=== PATIENT | female | born 1990 | race Caucasian/White ===

== ENCOUNTER → 2016-12-29 | Outpatient (CLI) | payer BC ==
[~2016-12-29] MED LIST: ACET50TA PO; IBUP-1114 PO; ORTHOTRI PO; PRENTAB9 PO; PRIL20CA9 PO; THERGRAN; [UNRECOGNIZED DRUG - REMARK]
[2016-12-29 18:17] LABS: BASO % 0.5 % (0.0-1.0); EOS # 0.1 K/mm3 (0.0-0.50); EOS % 1.3 % (0.0-3.0); LARGE UNSTAINED CELL # 0.1 K/mm3 (0.0-0.4); LARGE UNSTAINED CELL % 1.6 % (0.0-4.0); LYMPH # 2.7 K/mm3 (1.5-6.5); LYMPH % 30.5 % (24.0-44.0); MEAN CORPUSCULAR HEMOGLOBIN 29.7 pg (27.0-33.0); MEAN CORPUSCULAR HGB CONC 33.1 g/dl (32.0-36.5); MEAN CORPUSCULAR VOLUME 89.7 fl (80.0-96.0); MONO # 0.4 K/mm3 (0.0-0.8); NEUTROPHILS # 5.5 K/mm3 (1.8-7.7); PLATELET COUNT, AUTOMATED 265 k/mm3 (150-450); RED CELL DISTRIBUTION WIDTH 13.1 % (11.5-14.5); WHITE BLOOD COUNT 8.8 K/mm3 (4.0-10.0)
[2016-12-29 18:26] LABS: ALBUMIN/GLOBULIN RATIO 1.21 (1.00-1.93); ALKALINE PHOSPHATASE 89 U/L (45-117); ALT/SGPT 28 U/L (12-78); ANION GAP 10 MEQ/L (8-16); AST/SGOT 17 U/L (15-37); BILIRUBIN,TOTAL 0.2 MG/DL (0.2-1.0); BLOOD UREA NITROGEN 13 MG/DL (7-18); CALCIUM LEVEL 8.6 MG/DL (8.5-10.1); CARBON DIOXIDE LEVEL 26 MEQ/L (21-32); CHLORIDE LEVEL 107 MEQ/L (98-107); CREATININE FOR GFR 0.83 MG/DL (0.55-1.02); GLOMERULAR FILTRATION RATE > 60.0 (>60); GLUCOSE, FASTING 93 MG/DL (70-105); POTASSIUM SERUM 4.3 MEQ/L (3.5-5.1); SODIUM LEVEL 143 MEQ/L (136-145); TOTAL PROTEIN 7.3 GM/DL (6.4-8.2)
[2016-12-29 18:53] LABS: PROLACTIN 4.1 NG/ML
== END ==
LOC: M SMT 13:40
PROVIDERS: ATTEND Family Medicine
DX: L65.9 Nonscarring hair loss, unspecified (principal)

== ENCOUNTER → 2020-11-10 | Outpatient (REF) | payer BC ==
[~2020-11-10] MED LIST changes: -ACET50TA PO; +MAPA500T2 PO
== END ==
LOC: M SFHCWAGY 13:15
PROVIDERS: ATTEND Nurse Practitioner Family
DX: Z12.4 Encounter for screening for malignant neoplasm of cervix (principal)

== ENCOUNTER → 2021-09-02 | Outpatient (CLI) | payer BC ==
--- NOTE | 2021-09-02 11:04 | REP ---
INDICATION: PELVIC AND PERINEAL PAIN. COMPARISON: None. TECHNIQUE: Transvesical and transvaginal imaging FINDINGS: The uterus measures 8.6 x 4.6 x 4.3 cm. The parenchymal echo pattern is within normal limits. The endometrial echo complex measures 9 mm in thickness and is homogeneous. Incidental note is made of nabothian cyst. There is no free fluid in the cul-de-sac. The right ovary measures 4.2 x 2.9 x 3.5 cm and is within normal limits with an RI 0.58 A 2.3 cm sized anechoic structure is seen in the right ovary consistent with a dominant follicle. The left ovary measures 2.7 x 1.9 x 2.7 cm and is within normal limits with an RI 0.62. IMPRESSION: Within normal limits. <Electronically signed by John Ann > 09/02/21 1100
--- NOTE | 2021-09-02 13:51 | REP ---
INDICATION: PELVIC AND PERINEAL PAIN. COMPARISON: None. FINDINGS: See dictation under report of pelvic non OB ultrasound this date. IMPRESSION: See dictation under report of pelvic non OB ultrasound this date. <Electronically signed by Eugenio Mckay > 09/02/21 [id number]
== END ==
LOC: M WHC 08:46
PROVIDERS: ATTEND Specialist
DX: N83.02 Follicular cyst of left ovary (principal)

== ENCOUNTER → 2022-01-12 | Outpatient (REF) | payer OTHER | LOC: M PLALAB 09:24 | PROVIDERS: ATTEND Specialist | DX: Z12.4 Encounter for screening for malignant neoplasm of cervix (principal) | CPT/HCPCS: 87624; G0123 ==

== ENCOUNTER → 2023-06-19 | Outpatient (CLI) | payer BC | LOC: M CLY 11:04 | PROVIDERS: ATTEND Nurse Practitioner Family | DX: M79.671 Pain in right foot (principal); M79.672 Pain in left foot ==

== ENCOUNTER → 2023-06-19 | Outpatient (CLI) | payer BC | LOC: M CLY 10:55 | PROVIDERS: ATTEND Nurse Practitioner Family | DX: Z53.9 Procedure and treatment not carried out, unspecified reason (principal) ==

== ENCOUNTER → 2024-01-26 | Outpatient (REF) | payer OTHER ==
[2024-01-26 12:42] LABS: BASO # 0.1 10^3/uL (0.0-0.2); BASO % 0.7 % (0.0-1.0); EOS # 0.1 10^3/uL (0.0-0.5); EOS % 1.1 % (0.0-3.0); HEMATOCRIT 39.3 % (36.0-47.0); HEMOGLOBIN 12.8 g/dl (12.0-15.5); LYMPH # 2.8 10^3/uL (1.5-5.0); LYMPH % 34.2 % (24.0-44.0); MEAN CORPUSCULAR HEMOGLOBIN 29.6 pg (27.0-33.0); MEAN CORPUSCULAR HGB CONC 32.6 g/dl (32.0-36.5); MONO # 0.5 10^3/uL (0.0-0.8); MONO % 6.5 % (2.0-8.0); NEUTROPHILS # 4.6 10^3/uL (1.5-8.5); NEUTROPHILS % 57.3 % (36.0-66.0); PLATELET COUNT, AUTOMATED 289 10^3/uL (150-450); RED BLOOD COUNT 4.32 10^6/uL (4.00-5.40); WHITE BLOOD COUNT 8.1 10^3/uL (4.0-10.0)
[2024-01-26 13:09] LABS: C REACTIVE PROTEIN QUANTITATIV < 0.40 MG/DL (<1.0)
[2024-01-26 13:11] LABS: ALKALINE PHOSPHATASE 73 U/L (46-116); ALT/SGPT 20 U/L (7.0-40); AST/SGOT 11 U/L (<34); BILIRUBIN,DIRECT 0.2 MG/DL (<0.4); BILIRUBIN,TOTAL 0.7 MG/DL (0.3-1.2); BLOOD UREA NITROGEN 13 MG/DL (9-23); CALCIUM LEVEL 8.9 MG/DL (8.5-10.1); CARBON DIOXIDE LEVEL 28 MMOL/L (20-31); CHLORIDE LEVEL 105 MMOL/L (98-107); CHOLESTEROL LEVEL 214 MG/DL (<200); CHOLESTEROL RISK RATIO 3.93 (<5); CREATININE FOR GFR 0.74 MG/DL (0.55-1.30); GLOMERULAR FILTRATION RATE > 60.0 (>60); GLUCOSE, FASTING 90 MG/DL (60-100); HDL CHOLESTEROL 54.4 MG/DL (>40); LDL CHOLESTEROL 140.2 MG/DL (<100); NON-HDL-C 159.6 MG/DL; PHOSPHORUS LEVEL 3.5 MG/DL (2.5-4.9); POTASSIUM SERUM 4.9 MMOL/L (3.5-5.1); SODIUM LEVEL 139 MMOL/L (136-145); TOTAL PROTEIN 6.7 G/DL (5.7-8.2); TRIGLYCERIDES LEVEL 97 MG/DL (<150)
[2024-01-26 13:17] LABS: HEMOGLOBIN A1c 4.9 % (4.0-6.0); THYROID STIMULATING HORMONE 4.195 uIU/ML (0.55-4.78)
[2024-01-26 13:18] LABS: FREE T4 1.17 NG/DL (0.89-1.76)
== END ==
LOC: M LABDRAWC 11:42
PROVIDERS: ATTEND Nurse Practitioner Family
DX: E66.8 Other obesity (principal)

== ENCOUNTER → 2024-05-24 | Outpatient (REF) | payer BC ==
[2024-05-28 12:33] LABS: HPV APTIMA Not Detected (Not Detected)
== END ==
LOC: M SFHCWAGY 12:58
PROVIDERS: ATTEND Specialist
DX: Z12.4 Encounter for screening for malignant neoplasm of cervix (principal)
CPT/HCPCS: 87624; G0123

== ENCOUNTER 2025-06-13 11:04 | Emergency (ER) | payer BC ==
[~2025-06-13] VITALS: Ht 160 cm; Wt 79.7 kg
[2025-06-13 16:10] VITALS: BP 115/71; TEMP 98; O2SAT 97
== END 2025-06-13 16:11 | disposition home or self-care (01) ==
LOC: M ED 11:04
DX: R22.1 Localized swelling, mass and lump, neck (principal); R13.10 Dysphagia, unspecified; Z91.040 Latex allergy status

== ENCOUNTER → 2025-06-17 | Outpatient (REF) | payer BC ==
[2025-06-17 19:26] LABS: BASO # 0.1 10^3/uL (0.0-0.2); BASO % 0.8 % (0.0-1.0); EOS # 0.1 10^3/uL (0.0-0.5); EOS % 1.2 % (0.0-3.0); LYMPH # 3.1 10^3/uL (1.5-5.0); LYMPH % 31.5 % (24.0-44.0); MONO # 0.7 10^3/uL (0.0-0.8); MONO % 6.5 % (2.0-8.0); NEUTROPHILS # 5.9 10^3/uL (1.5-8.5); NEUTROPHILS % 59.6 % (36.0-66.0); PLATELET COUNT, AUTOMATED 259 10^3/uL (150-450)
[2025-06-17 19:31] LABS: RHEUMATOID FACTOR QUANT < 3.5 IU/ML (<14)
[2025-06-17 19:32] LABS: FREE T4 1.27 NG/DL (0.89-1.76)
[2025-06-17 19:35] LABS: ALT/SGPT 25 U/L (7.0-40); AST/SGOT 18 U/L (<34); CALCIUM LEVEL 9.4 MG/DL (8.5-10.1); CARBON DIOXIDE LEVEL 27 MMOL/L (20-31); CHLORIDE LEVEL 104 MMOL/L (98-107); CREATININE FOR GFR 0.77 MG/DL (0.55-1.30); GLOMERULAR FILTRATION RATE > 90.0 (>60); MAGNESIUM LEVEL 1.9 MG/DL (1.8-2.4); POTASSIUM SERUM 4.3 MMOL/L (3.5-5.1); SODIUM LEVEL 140 MMOL/L (136-145); THYROID PEROXIDASE ANTIBODY < 28.0 U/ML (<60.0)
[2025-06-17 19:37] LABS: C REACTIVE PROTEIN QUANTITATIV < 0.50 MG/DL (<1.0)
[2025-06-17 21:17] LABS: ERYTHROCYTE SEDIMENTATION RATE 27 mm/hr (0-20)
[2025-06-19 15:47] LABS: SSA SJOGRENS A <1.0 NEG AI (<1.0 NEG); SSB SJOGRENS B <1.0 NEG AI (<1.0 NEG)
[2025-06-19 15:58] LABS: THRYOGLOBULIN ANTIBODIES (ATA) < 1 IU/mL (< or = 1); THYROGLOBULIN QUANTITATIVE 40.5 ng/mL (2.8-40.9)
[2025-06-23 13:53] LABS: IMMUNOGLOBULIN A CELIAC 115 mg/dL (47-310); t-TRANSGLUTAMINASE(tTG) IgA < 1.0 U/mL (<15.0); t-TRANSGLUTAMINASE(tTG) IgG < 1.0 U/mL (<15.0)
== END ==
LOC: M SFHCCLAY 10:24
PROVIDERS: ATTEND Nurse Practitioner Family
DX: Z01.818 Encounter for other preprocedural examination (principal); N62 Hypertrophy of breast; E04.1 Nontoxic single thyroid nodule; M25.50 Pain in unspecified joint; R13.10 Dysphagia, unspecified

== ENCOUNTER → 2025-09-08 | Outpatient (CLI) | payer BC ==
[~2025-09-08] MED LIST changes: +E-Z-GAS II EFFERVESCENT PACKET (SODIUM BICARB./CITRIC ACID/SIMETHICONE) As Ordered ONE; +E-Z-HD 98% w/w 340 GM SUSP BTL As Ordered ONE; +E-Z-PAQUE 96% w/w SUSP 176 GM BTL As Ordered ONE
== END ==
LOC: M RAD 08:13
PROVIDERS: ATTEND Nurse Practitioner Family
DX: R13.10 Dysphagia, unspecified (principal); K44.9 Diaphragmatic hernia without obstruction or gangrene; K31.7 Polyp of stomach and duodenum

== ENCOUNTER → 2025-09-25 | Outpatient (REF) | payer BC ==
[~2025-09-25] MED LIST changes: -E-Z-GAS II EFFERVESCENT PACKET (SODIUM BICARB./CITRIC ACID/SIMETHICONE) As Ordered ONE; -E-Z-HD 98% w/w 340 GM SUSP BTL As Ordered ONE; -E-Z-PAQUE 96% w/w SUSP 176 GM BTL As Ordered ONE
== END ==
LOC: M SFHCCLAY 17:19
PROVIDERS: ATTEND Physician Assistant
DX: J02.9 Acute pharyngitis, unspecified (principal)

== ENCOUNTER 2025-10-21 13:38 | Day surgery (SDC) | payer BC ==
[~2025-10-21] VITALS: Ht 160 cm; Wt 81.6 kg
[~2025-10-21 13:38] MED LIST changes: +FERR325T81 PO; +LIDOCAINE 2% 100 MG/5 ML SDV (FOR ANES.) As Ordered ONE; +LISD30CA PO; +MAGN400T2 PO; +MULTTAB61 PO; +PANT40TA29 PO; +TURM500C10 PO; +VITA100093 PO
[2025-10-21 14:35] VITALS: TEMP 97.6
[2025-10-21 14:48] VITALS: BP 112/61; O2SAT 99
== END 2025-10-21 14:55 | disposition home or self-care (01) ==
LOC: M OPP 13:38
PROVIDERS: ATTEND Internal Medicine Gastroenterology
DX: K31.7 Polyp of stomach and duodenum (principal); K21.9 Gastro-esophageal reflux disease without esophagitis; D50.9 Iron deficiency anemia, unspecified; Z87.19 Personal history of other diseases of the digestive system; Z79.899 Other long term (current) drug therapy; F90.9 Attention-deficit hyperactivity disorder, unspecified type; Z91.040 Latex allergy status
CPT/HCPCS: 43239; 88305; J3010